=== PATIENT | female | born 1995 | race Asian ===

== ENCOUNTER 2016-09-06 09:08 | Emergency (ER) | payer OTHER ==
[~2016-09-06] VITALS: Ht 167.6 cm; Wt 60.3 kg
[2016-09-06 10:29] LABS: PLATELET COUNT 200 K/uL (152-353)
[2016-09-06 10:37] LABS: POTASSIUM 3.5 mmol/L (3.6-5.2); SODIUM 141 mmol/L (136-145)
[2016-09-06 11:34] VITALS: BP 116/53; TEMP 98.1
== END 2016-09-06 11:35 | disposition home or self-care (01) ==
LOC: ED 09:08
DX: N39.0 Urinary tract infection, site not specified (principal); B96.81 Helicobacter pylori [H. pylori] as the cause of diseases classified elsewhere; K29.70 Gastritis, unspecified, without bleeding
CPT/HCPCS: 36415; 80053; 81000; 81025; 82150; 83690; 85027; 86318; 87077; 87086; 87088; 87186; 99283